=== PATIENT | male | born 1960 | race Caucasian/White ===

== ENCOUNTER 2024-04-19 05:50 | Day surgery (SDC) | payer OTHER, SELFPAY ==
--- NOTE | 2024-04-18 09:54 | EKG_ITS ---
[facility], [place] Test Date: 2024-04-18 Pat Name: TAPAN SARMIENTO Department: Room: - Gender: Male Food Services Director: STUDENT : 1960 Requested By: Gio Claire Order Number: [id number] Reading MD: Gio Claire Measurements Intervals Hunt Rate: 52 P: 19 ND: 157 QRS: -14 QRSD: 110 T: 31 QT: 400 QTc: 373 Interpretive Statements SINUS BRADYCARDIA No previous ECG available for comparison /store/S0/[id number]
[2024-04-18 09:57] VITALS: BMI 29.4
[2024-04-18 10:39] LABS: Basophils % (Auto) 0 % (0-2.5); Eosinophils # (Auto) 0.1 Thou/mm3 (0.0-0.5); Eosinophils % (Auto) 2 % (0-10); Hematocrit 44.9 % (41.0-53.0); Immature Granulocytes % (Auto) 1 % (0-0); Immature Granulocytes Auto 0.05 Thou/mm3 (0.00-0.00); Lymphocytes # (Auto) 1.6 Thou/mm3 (1.0-4.8); Lymphocytes % (Auto) 22 % (10-50); Mean Corpuscular HGB Conc 33.4 g/dl (31.0-37.0); Mean Corpuscular Volume 78 fL (80-100); Monocytes # (Auto) 0.6 Thou/mm3 (0.0-0.8); Monocytes % (Auto) 8 % (0-12); Neutrophils % (Auto) 68 % (37-80); Nucleated Red Blood Cell % 0 /100 WBC (0); Platelet Count 276 Thou/mm3 (140-440); RDW Standard Deviation 51.3 fL (35.1-43.9); Red Blood Count 5.76 Miln/mm3 (4.50-5.90); White Blood Count 7.4 Thou/mm3 (3.8-10.6)
[2024-04-18 10:56] LABS: Alanine Aminotransferase 25 U/L (10-49); Albumin, Serum 4.7 gm/dL (3.4-4.8); Albumin/Globulin Ratio 2.1 (1.2-2.2); Alkaline Phosphatase 100 U/L (46-116); Anion Gap 7 (7-16); Aspartate Amino Transferase 26 U/L (0-34); BUN/Creatinine Ratio 10 Ratio (12-20); Bilirubin,Total 0.5 mg/dL (0.3-1.2); Blood Urea Nitrogen 12 mg/dL (9-23); Calcium 9.5 mg/dL (8.3-10.6); Calcium (Corrected) 9.5 mg/dL (8.5-10.1); Chloride 106 mMol/L (98-107); Creatinine (Component) 1.2 mg/dL (0.6-1.3); Estimated Creatinine Clearance 79.8 mL/min (>60); Globulin 2.2 gm/dL (2.3-3.5); Glucose 100 mg/dL (74-106); Osmolality,Calculated 279 (275-295); Potassium 4.5 mMol/L (3.4-5.1); Sodium 140 mMol/L (136-145); Total Protein 6.9 gm/dL (5.7-8.2); eGFR > 60 See Note
[2024-04-18 11:24] LABS: Partial Thromboplastin Time 27.5 Seconds (22.0-36.0); Prothrombin Time 11.1 Seconds (9.0-12.2)
[2024-04-19] VITALS (17 sets, daily range): BP systolic 103–145; BP diastolic 63–97; PULSE 53–78; RESP 12–19; TEMP 36.1–36.4; O2SAT 95–100; BMI 29.0
[2024-04-19] MEDS: RINGERS LACTATED 1000 ML 1,000 ML 20 ML IV (06:42)
--- NOTE | 2024-04-19 07:20 | CHAP ---
Visited briefly with patient and had prayer.
--- NOTE | 2024-04-19 08:45 | ESOP_ITS ---
Date of Procedure 04/19/24 Pre Op Diagnosis Symptomatic hemorrhoids Post Op Diagnosis Same Procedure Transanal hemorrhoidal dearterialization Findings Circumferential prolapsing internal hemorrhoids Procedure Description After discussion of risks and benefits, patient was brought to the operating room, SCDs were placed and general anesthesia was induced. He was placed in the lithotomy position with proper padding and was prepped and draped in the usual sterile fashion. After timeout a CHARLOTTE was performed which was normal. After that transanal hemorrhoidal dearterialization was undertaken at the 1, 3, 5, 7, 9, and 11 positions. Due to prolapsing mucosa mucopexy was also performed at the 5, 7, 9, and 11:00 positions. Left and right pudendal nerve blocks were performed for a total of 20 cc of half percent Marcaine. The area was examined and hemostasis was confirmed. Patient was returned to supine position and extubated without complication. He was brought to PACU in stable condition Pathology / specimen None Estimated Blood Loss 20 Surgeon Katharine Brian MD Surgical Staff Operation Date: 04/19/24 07:30 Case Staff ULTRASOUND SPECIALIST: Binh Peters
--- NOTE | 2024-04-19 08:48 | PD.SURDS ---
Planned Discharge Date 04/19/24 DS: Providers Provider Primary care physician: Beverly Suh MD Attending Provider on Admission: Katharine Brian MD Attending Provider on DC: Katharine Brian MD Discharging Provider: Katharine Brian MD Diagnosis Discharge Diagnosis (1) Hemorrhoids, internal, with bleeding: Status: Acute Problem List Completed Was Problem List Reviewed/Reconciled?: Yes Exam Vital Signs Temp Pulse Resp BP Pulse Ox 97.2 F 60 19 103/81 95 04/19/24 06:19 04/19/24 06:19 04/19/24 06:19 04/19/24 06:19 04/19/24 06:19 Discharge Plan Plan Patient Disposition: HOME (Self Care) Prescriptions/Referrals Prescriptions/Med Rec: New oxycodone-acetaminophen [Endocet] 5-325 mg tablet 1 tab PO Q6H MDD 6 tabs PRN (Reason: pain) Qty: 30 0RF ibuprofen 800 mg tablet 800 mg PO Q8H PRN (Reason: pain) Qty: 30 0RF docusate sodium [Colace] 100 mg capsule 100 mg PO QDAY PRN (Reason: constipation) Qty: 30 0RF Referrals: Beverly Suh MD [Primary Care Provider] - Katharine Brian MD [Physician] - (You will receive a phone call to confirm a follow-up appointment with me in 6 weeks. Please feel free to call the office with concerns or questions) Patient/Caregiver Discharge Instructions Other Discharge Activity Instructions:: Avoid constipation and diarrhea Take Endocet and ibuprofen as needed for pain Take Colace as needed for constipation, if additional medications needed try MiraLAX You will likely have bleeding similar to what you experience preoperatively. You may continue to take sitz baths as needed If you develop fever, inability to urinate, worsening pain not controlled by medications please seek care in ER Education Materials: Taking a Sitz Bath, Treating Hemorrhoids: Surgery, Eating a High-Fiber Diet Print Language: Turkish Stand Alone Forms: Tyra Award Info., Patient Portal Info Letter Results Results: Laboratory Laboratory results: results reviewed Procedures Procedure Date 04/19/24 Procedures Transanal hemorrhoidal dearterialization
--- NOTE | 2024-04-19 09:00 | SUR.PHASEI ---
pt arrived to PACU via gurney drowsy but arouses to verbal commands, breathing unlabored, dressing to anal area clean, dry, and intact, report from Enedina AMRBOSE and Finn SAENZ
--- NOTE | 2024-04-19 09:30 | SUR.PHASEII ---
pt needs to urinate before discharge per Dr Brian
[2024-04-19] MEDS: oxyCODONE/APAP 5/325 TABLET 1 TAB PO (09:36)
[2024-04-19] MEDS: TAMSULOSIN HCL 0.4 MG CAPSULE PO ×2 (09:59)
--- NOTE | 2024-04-19 10:02 | SUR.PHASEII ---
pt up to urinate, attempt unsuccessful
[2024-04-19] MEDS: fentaNYL CIT INJ 50 mCg/ML AMP 2ML IVP (10:22)
[2024-04-19] MEDS: IBUPROFEN TAB 400 MG TABLET 800 MG PO (10:32)
--- NOTE | 2024-04-19 10:46 | SUR.PHASEII ---
pt up to urinate, attempt unsuccessful
--- NOTE | 2024-04-19 11:30 | SUR.PHASEII ---
pt up to urinate, attempt unsuccessful
--- NOTE | 2024-04-19 12:06 | SUR.PHASEII ---
report from nurse jaki marinelli. breathing even and unlabored. drinking po fluids. states pain 4/10 but better than it was.
--- NOTE | 2024-04-19 12:19 | SUR.PHASEII ---
pt up to restroom. attempt to urinate unsuccessful.
--- NOTE | 2024-04-19 12:40 | SUR.PHASEII ---
report to nurse jaki au pt ready for discharge , waiting for urinating. at bedside.
[2024-04-19] MEDS: ONDANSETRON INJ 2 MG/ML INJ 2 ML 4 MG IV (12:45)
--- NOTE | 2024-04-19 13:40 | SUR.PHASEII ---
pt able to urinate successfully
--- NOTE | 2024-04-19 13:50 | SUR.PHASEII ---
pt awake, alert, able to follow commands, breathing unlabored, dressing to anal area clean, dry, and intact, pt able to urinate in the bathroom successfully, discharge instructions given with Camilla AMBROSE, all questions answered, pt discharged via wheelchair with all belongings and copies of discharge paperwork.
== END 2024-04-19 13:50 | disposition home or self-care (01) ==
PROVIDERS: Anesthesiology; PCP Internal Medicine; Referring Provider Surgery; Visit Provider Surgery
PROC: (CPT 46948; principal; 2024-04-19 07:30)
DX: K64.8 Other hemorrhoids (principal)
CPT/HCPCS: 46948; 36415; 80053; 85025; 85610; 85730; 93005; A4217; A4649; J0131; J2250; J2371; J2405; J2704; J3010; J3490; J7120; A9270; J1596

== ENCOUNTER → 2024-09-06 | Outpatient (CLI) | payer OTHER, SELFPAY ==
[2024-09-06 16:35] LABS: Basophils % (Auto) 0 % (0-2.5); Eosinophils # (Auto) 0.2 Thou/mm3 (0.0-0.5); Eosinophils % (Auto) 2 % (0-10); Hematocrit 47.4 % (41.0-53.0); Hemoglobin 16.2 g/dL (13.5-16.0); Immature Granulocytes % (Auto) 0 % (0-0); Immature Granulocytes Auto 0.03 Thou/mm3 (0.00-0.00); Lymphocytes # (Auto) 1.9 Thou/mm3 (1.0-4.8); Lymphocytes % (Auto) 26 % (10-50); Mean Corpuscular HGB Conc 34.2 g/dl (31.0-37.0); Mean Corpuscular Hemoglobin 28.1 pg (25.0-35.0); Mean Corpuscular Volume 82 fL (80-100); Monocytes # (Auto) 0.5 Thou/mm3 (0.0-0.8); Monocytes % (Auto) 6 % (0-12); Neutrophils # (Auto) 4.7 Thou/mm3 (1.8-7.7); Neutrophils % (Auto) 65 % (37-80); Nucleated Red Blood Cell % 0 /100 WBC (0); Platelet Count 297 Thou/mm3 (140-440); RDW Standard Deviation 41.1 fL (35.1-43.9); Red Blood Count 5.76 Miln/mm3 (4.50-5.90); White Blood Count 7.3 Thou/mm3 (3.8-10.6)
[2024-09-06 17:02] LABS: Ferritin 37 ng/mL (10.5-307.3)
[2024-09-20 06:30] LABS: Testosterone, Total, Dialysis 296 ng/dL (250-1100)
== END | disposition home or self-care (01) ==
LOC: COPL 15:02
PROVIDERS: PCP Internal Medicine; Referring Provider Internal Medicine; Visit Provider Internal Medicine
DX: D50.0 Iron deficiency anemia secondary to blood loss (chronic) (principal); K92.2 Gastrointestinal hemorrhage, unspecified
CPT/HCPCS: 36415; 82728; 84402; 84403; 85025

== ENCOUNTER → 2024-09-18 | Outpatient (CLI) | payer OTHER, SELFPAY ==
[2024-09-26 06:15] LABS: Testosterone, Free,Dialysis 56.7 pg/mL (35.0-155.0); Testosterone, Total, Dialysis 270 ng/dL (250-1100)
== END | disposition home or self-care (01) ==
LOC: COPL 16:09
PROVIDERS: PCP Internal Medicine; Referring Provider Internal Medicine; Visit Provider Internal Medicine
DX: K92.2 Gastrointestinal hemorrhage, unspecified (principal); D50.0 Iron deficiency anemia secondary to blood loss (chronic)
CPT/HCPCS: 36415; 84402; 84403